=== PATIENT | female | born 2005 | race African-American/Black ===

== ENCOUNTER 2024-04-30 14:25 | Emergency (ER) | payer OTHER, SELFPAY ==
[2024-04-30 14:28] VITALS: BP 94/63; PULSE 98; RESP 16; TEMP 36.7; O2SAT 100; BMI 20.5
--- NOTE | 2024-04-30 14:46 | US_ITS ---
WS: [id number] LIMITED OBSTETRICAL ULTRASOUND HISTORY: threatened miscarriage COMPARISON: None available. Presentation: Variable Cervix: Closed and normal length. Placenta: Placenta is low lying and covers the cervical os. No adjacent hemorrhage is identified. Cer vix is closed. HEART: FHR of 152 BPM. measurements: BPD = 2.4 cm = 14w0d; HC = 8.2 cm = 13w4d; AC = 6.8 cm = 13w3d; FL = 1.3 cm = 14w0d; Normal amount of amniotic fluid surrounding the fetus. AGA by ultrasound: 13w5d LORA by ultrasound: 10/31/2024 Normal LEFT ovary. No adnexal mass. RIGHT ovary is not identified. US/US OB <= 14 weeks fetus [id number] IMPRESSION: 1. Single intrauterine gestation of 13w5d with an LORA of 10/31/2024. 2. Normal cardiac activity. 3. Low lying placenta does cover the cervical os but this gestational age is t oo early to accurately clarify a placental position. The cervix appears closed.
[2024-04-30 16:04] VITALS: BP 93/69; PULSE 70; O2SAT 93
--- NOTE | 2024-04-30 16:21 | W.ED.PREGNAN ---
HPI - General: Chief complaint: Vaginal Bleeding Stated complaint: rt sided stomach pain/vaginal bleeding, 13wks Time Seen by Provider: 04/30/24 16:13 Source: patient Mode of arrival: ambulatory Limitations: no limitations History of Present Illness: 18-year-old female who is 13 weeks states she started having some lower abdominal cramping and vaginal bleeding today. States she has had cramping over the last few weeks with nausea and vomiting states she had had a one-time episode of bleeding today denies passing any large clots denies any severe pain this is her first no previous issues with this . Date of Last Menstrual Period: 01/26/24 Associated symptoms: Reports abdominal pain; Deny headache(s), nausea or vomiting Related Data Home Medications Medication Instructions Recorded Confirmed No Known Home Medications 04/30/24 04/30/24 Allergies Allergy/AdvReac Type Severity Reaction Status Date / Time No Known Allergies Allergy Verified 04/30/24 14:35 Review of Systems Const: Denies: fever(s), chills, body aches or change in appetite ENMT: Denies: throat pain or dental pain Card: Denies: chest pain Resp: Denies: dyspnea GI: Reports: abdominal pain; Denies: nausea, vomiting or diarrhea : Reports: vaginal bleeding Musc: Denies: neck pain or back pain Skin/Breast: Denies: rash Neuro: Denies: headache(s) [facility] ED Female Reproductive History: Date of last menstrual period: 01/26/24 Physical Exam Const: COMMON NORMALS: no acute distress, patient oriented x3 and healthy appearing HENMT: COMMON NORMALS: normocephalic and atraumatic HEAD & SCALP: normocephalic and atraumatic Neck/C-Spine: COMMON NORMALS: full ROM and supple Chest: COMMONS NORMALS: normal inspection of the chest Resp: COMMON NORMALS: normal respiratory effort Cardio: COMMON NORMALS: regular rate, regular rhythm and No murmurs present (Cardio) RATE: regular rate RHYTHM: regular rhythm GI: COMMON NORMALS: Normal to inspection, nondistended, normoactive bowel sounds present, Soft to palpation, non-tender and no masses PALPATION: Yes Soft to palpation Extremity: COMMON NORMALS: normal to inspection and full ROM Neuro: COMMON NORMALS: patient oriented x3, moves all extremities and no focal motor deficits Psych: COMMON NORMALS: mental status grossly normal, Normal thought process present and cooperative THOUGHT PROCESS: Normal thought process present Skin: COMMON NORMALS: no rashes or lesions noted and no wounds GENERAL SKIN EXAM: no rashes or lesions noted Course Vital Signs: Vital signs: Vital Signs Temperature 98.1 F 04/30/24 14:28 Pulse Rate 81 04/30/24 17:30 Respiratory Rate 16 04/30/24 14:28 Blood Pressure 103/56 04/30/24 17:30 Pulse Oximetry 100 04/30/24 17:30 Oxygen Delivery Me thod Room Air 04/30/24 17:30 MDM - OB/Uterine Contractions Medical Decision Making Patient presents with vaginal bleeding in with a threatened miscarriage no heavy bleeding here her blood work here is normal abdominal exam is benign ultrasound showed IUP she stable for discharge she has to follow-up with her OB and 4 to 7 days return if worsening she understands agrees to plan Medical Records I reviewed the patient's medical records. Lab Data I reviewed the patient's lab results. 04/30/24 16:45 04/30/24 16:45 Radiology Impressions Ultrasound 04/30/24 14:46 IMPRESSION: 1. Single intrauterine gestation of 13w5d with an LORA of 10/31/2024. 2. Normal cardiac activity. 3. Low lying placenta does cover the cervical os but this gestational age is too early to accurately clarify a placental position. The cervix appears closed. Laboratory Results WBC 11.58 10^3/uL (4.5-13.0) 04/30/24 16:45 RBC 4.99 10^6/uL (3.85-5.65) 04/30/24 16:45 Hgb 13.80 g/dL (12.4-14.8) 04/30/24 16:45 Hct 42.6 % (36-47) 04/30/24 16:45 MCV 85.4 fl (85-98) 04/30/24 16:45 MCH 27.7 pg (27-33) 04/30/24 16:45 MCHC 32.4 g/dL (30-55) 04/30/24 16:45 RDW 13.5 % (12.1-15.1) 04/30/24 16:45 Plt Count 243 10^3/cmm (157-399) 04/30/24 16:45 MPV 10.4 fL (7.4-10.4) 04/30/24 16:45 Neut % (Auto) 73.2 % 04/30/24 16:45 Lymph % (Auto) 18.5 % 04/30/24 16:45 Moffat % (Auto) 6.3 % 04/30/24 16:45 Eos % (Auto) 1.0 % 04/30/24 16:45 Baso % (Auto) 0.7 % 04/30/24 16:45 Neut # (Auto) 8.47 10^3/uL (1.8-8.0) H 04/30/24 16:45 Lymph # (Auto) 2.1 10^3/uL (1.5-6.5) 04/30/24 16:45 Moffat # (Auto) 0.7 10^3/uL (0.2-0.9) 04/30/24 16:45 Eos # (Auto) 0.1 10^3/uL (0.0-0.8) 04/30/24 16:45 Baso # (Auto) 0.1 10^3/uL (0.0-0.1) 04/30/24 16:45 Nucleated RBC % (auto) 0 % 04/30/24 16:45 Nucleated RBCs # 0.0 /100WBC 04/30/24 16:45 Sodium Cancelled 04/30/24 16:45 Potassium Cancelled 04/30/24 16:45 Chloride Cancelled 04/30/24 16:45 Carbon Dioxide Cancelled 04/30/24 16:45 Anion Gap Cancelled 04/30/24 16:45 BUN Cancelled 04/30/24 16:45 Creatinine Cancelled 04/30/24 16:45 GFR Calculation Cancelled 04/30/24 16:45 Glucose Cancelled 04/30/24 16:45 Calculated Osmolality Cancelled 04/30/24 16:45 Calcium Cancelled 04/30/24 16:45 Total Bilirubin Cancelled 04/30/24 16:45 AST Cancelled 04/30/24 16:45 ALT Cancelled 04/30/24 16:45 Alkaline Phosphatase Cancelled 04/30/24 16:45 Total Protein Cancelled 04/30/24 16:45 Albumin Cancelled 04/30/24 16:45 Globulin Cancelled 04/30/24 16:45 Lipase Cancelled 04/30/24 16:45 Urine Color Yellow (Yellow) 04/30/24 16:19 Urine Appearance Clear (CLEAR) 04/30/24 16:19 Urine pH 7.5 (5-7) 04/30/24 16:19 Ur Specific Winifred 1.019 (1.005-1.030) 04/30/24 16:19 Urine Protein Negative (Negative) 04/30/24 16:19 Urine Glucose (UA) Negative (Normal) 04/30/24 16:19 Urine Ketones Negative (Negative) 04/30/24 16:19 Urine Blood Negative (Negative) 04/30/24 16:19 Urine Nitrate Negative (Negative) 04/30/24 16:19 Urine Bilirubin Negative (Negative) 04/30/24 16:19 Urine Urobilinogen 1.0 mg/dL (Negative) 04/30/24 16:19 Ur Leukocyte Esterase Negative (Negative) 04/30/24 16:19 Urine RBC 0-2 /hpf (0-2) 04/30/24 16:19 Urine WBC 0-5 /hpf (0-5) 04/30/24 16:19 Ur Squamous Epith Cells 0-5 /hpf (0-5) 04/30/24 16:19 Amorphous Sediment Not Reportable 04/30/24 16:19 Urine Bacteria None seen /hpf (NONE) 04/30/24 16:19 Hyaline Casts 0.40 /lpf 04/30/24 16:19 Blood Type O Positive 04/30/24 16:45 Rho(D) Type Rh positive 04/30/24 16:45 All radiology interpretation(s) finalized by discharge Discharge Plan Discharge Patient Disposition: Home Clinical Impression: Threatened miscarriage Condition: Stable Prescriptions: No Action No Known Home Medications Discharge Orders: Discharge ED (Routine); Ordered 04/30/24 Ordered By: Fermin Gonsalves Discharge Diet: Advance as tolerated Discharge Activity: Resume usual activity Patient Instructions: Threatened Miscarriage (ED) Coding Level of Care Code ED Job Change Crew Member for Becka Richards
[2024-04-30 16:55] LABS: Bilirubin Urine Negative (Negative); Blood Urine Negative (Negative); Glucose Urine UA Negative (Normal); Ketones Urine Negative (Negative); Leukocyte Esterase Urine Negative (Negative); Nitrate Urine Negative (Negative); Protein Urine Negative (Negative); Specific Gravity, Urine 1.019 (1.005-1.030); Urine Appearance Clear (CLEAR); Urine Color Yellow (Yellow); pH Urine 7.5 (5-7)
[2024-04-30 17:00] LABS: Add Urine Microscopic? YES; Bacteria Urine None Seen /hpf; RBC Urine 0-2 /hpf (0-2); Squamous Epithelial Cell Urine 0-5 /hpf (0-5); WBC Urine 0-5 /hpf (0-5)
[2024-04-30 17:04] VITALS: BP 94/62; PULSE 78; O2SAT 99
[2024-04-30 17:30] VITALS: BP 103/56; PULSE 81; O2SAT 100
[2024-04-30] MEDS: sodium chloride 0.9% 1,000 ML 999 ML IV (17:45)
[2024-04-30] MEDS: diphenhydrAMINE 50 mg/mL SDV 1mL IVP (17:47)
[2024-04-30] MEDS: metoclopramide 5 mg/mL SDV 2 mL 10 MG IVP (17:47)
[2024-04-30 17:55] LABS: Basophils # 0.1 10^3/uL (0.0-0.1); Basophils % 0.7 %; Eosinophils # 0.1 10^3/uL (0.0-0.8); Hematocrit 42.6 % (36-47); Lymphocytes # 2.1 10^3/uL (1.5-6.5); Lymphocytes % 18.5 %; Mean Corpuscular HGB Conc 32.4 g/dL (30-55); Mean Corpuscular Hemoglobin 27.7 pg (27-33); Mean Corpuscular Volume 85.4 fl (85-98); Mean Platelet Volume 10.4 fL (7.4-10.4); Monocytes # 0.7 10^3/uL (0.2-0.9); Monocytes % 6.3 %; Neutrophils # 8.47 10^3/uL (1.8-8.0); Neutrophils % 73.2 %; Nucleated Red Blood Cells % 0 %; Platelet Count 243 10^3/cmm (157-399); Red Blood Count 4.99 10^6/uL (3.85-5.65); Red Cell Distribution Width 13.5 % (12.1-15.1); White Blood Count 11.58 10^3/uL (4.5-13.0)
[2024-04-30 19:00] VITALS: BP 94/42; PULSE 64; O2SAT 98
== END 2024-04-30 19:04 | disposition home or self-care (01) ==
PROVIDERS: Emergency Provider Emergency Medicine
DX: O20.0 Threatened abortion (principal); Z3A.13 13 weeks gestation of pregnancy
CPT/HCPCS: 76801; 81001; 85025; 86850; 86900; 96361; 96374; 96375; 99285; J1200; J2765; J7030